=== PATIENT | male | born 1930 | race Caucasian/White ===

== ENCOUNTER → 2016-08-08 | Outpatient (CLI) | payer MEDICARE, BC ==
[~2016-08-08] MED LIST: SODIUM CHLORIDE 0.9% 250 ML in EMPTY BAG 1 BAG IV PRN; SODIUM CHLORIDE 0.9% 500 ML in EMPTY BAG 1 BAG IV PRN
[2016-08-08 13:59] VITALS: BP 129/63; PULSE 63; RESP 16; TEMP 98.4
== END ==
LOC: PROCWHC3 13:12
PROVIDERS: ATTEND Internal Medicine
DX: C85.90 Non-Hodgkin lymphoma, unspecified, unspecified site (principal); Z98.890 Other specified postprocedural states
CPT/HCPCS: 96523; J1642

== ENCOUNTER → 2016-11-19 | Outpatient (CLI) | payer MEDICARE, BC ==
[~2016-11-19] MED LIST changes: -SODIUM CHLORIDE 0.9% 250 ML in EMPTY BAG 1 BAG IV PRN
[2016-11-19 13:36] VITALS: BP 156/74; PULSE 80; RESP 14; TEMP 96.9
== END | disposition home or self-care (01) ==
LOC: PROCWHC3 13:15
PROVIDERS: ATTEND Internal Medicine
DX: C85.90 Non-Hodgkin lymphoma, unspecified, unspecified site (principal)
CPT/HCPCS: 96523; J1642

== ENCOUNTER → 2017-07-29 | Outpatient (CLI) | payer MEDICARE, BC ==
[2017-07-29 15:13] VITALS: BP 133/74; PULSE 72; RESP 16; TEMP 97.7
== END ==
LOC: PROCWHC3 14:27
PROVIDERS: ATTEND Nurse Practitioner
DX: C85.90 Non-Hodgkin lymphoma, unspecified, unspecified site (principal); C82.59 Diffuse follicle center lymphoma, extranodal and solid organ sites
CPT/HCPCS: 96523; J1642

== ENCOUNTER → 2017-09-22 | Outpatient (CLI) | payer MEDICARE, BC ==
[2017-09-22 15:40] VITALS: BP 168/78; PULSE 78; RESP 16; TEMP 97.5
== END | disposition home or self-care (01) ==
LOC: PROCWHC3 14:13
PROVIDERS: ATTEND Internal Medicine
DX: C85.90 Non-Hodgkin lymphoma, unspecified, unspecified site (principal)
CPT/HCPCS: 96523; J1642

== ENCOUNTER → 2017-11-18 | Outpatient (CLI) | payer MEDICARE, BC ==
[2017-11-18 15:32] VITALS: BP 154/82; PULSE 79; RESP 16; TEMP 97.4
== END | disposition home or self-care (01) ==
LOC: PROCWHC3 15:01
PROVIDERS: ATTEND Nurse Practitioner
DX: C82.59 Diffuse follicle center lymphoma, extranodal and solid organ sites (principal)
CPT/HCPCS: 96523; J1642

== ENCOUNTER → 2018-08-12 | Outpatient (CLI) | payer MEDICARE, BC ==
[~2018-08-12] MED LIST changes: +SODIUM CHLORIDE 0.9% 500 ML 500 ML in EMPTY BAG 1 BAG IV PRN; -SODIUM CHLORIDE 0.9% 500 ML in EMPTY BAG 1 BAG IV PRN
[2018-08-12 14:40] VITALS: BP 162/87; PULSE 70; RESP 16; TEMP 97.3
== END ==
LOC: PROCWHC3 14:27
PROVIDERS: ATTEND Nurse Practitioner
DX: C82.90 Follicular lymphoma, unspecified, unspecified site (principal); Z45.2 Encounter for adjustment and management of vascular access device
CPT/HCPCS: 96523; J1642

== ENCOUNTER → 2018-11-24 | Outpatient (CLI) | payer MEDICARE, BC | END | disposition home or self-care (01) | LOC: PROCWHC3 14:24 | PROVIDERS: ATTEND Nurse Practitioner | DX: C82.90 Follicular lymphoma, unspecified, unspecified site (principal); Z45.2 Encounter for adjustment and management of vascular access device | CPT/HCPCS: 96523; J1642 ==

== ENCOUNTER → 2019-07-22 | Outpatient (CLI) | payer MEDICARE, BC ==
[2019-07-22 11:02] VITALS: BP 157/89; PULSE 80; RESP 18; TEMP 97.6
== END | disposition home or self-care (01) ==
LOC: PROCWHC3 10:45
PROVIDERS: ATTEND Nurse Practitioner
DX: C82.90 Follicular lymphoma, unspecified, unspecified site (principal)
CPT/HCPCS: 96523